=== PATIENT | female | born 1995 | race Caucasian/White ===

== ENCOUNTER 2017-09-29 10:32 | Emergency (ER) | payer OTHER ==
[2017-09-29 10:42] VITALS: BP 109/54
--- NOTE | 2017-09-29 11:54 | XRAY Report ---
EXAM: RIGHT ANKLE RADIOGRAPHY EXAM DATE: 09/29/2017 11:34 AM. CLINICAL HISTORY: Lateral malleolus swelling. Kicked a punching bag. COMPARISON: None. TECHNIQUE: 3 views. FINDINGS: Bones: Normal. No fractures or bone lesions. Joints: Normal. No effusion. No subluxations. The ankle mortise is normally aligned. Soft Tissues: Soft tissue swelling of the lateral and anterior aspect of the right ankle. IMPRESSION: 1. No acute osseous abnormalities. 2. Soft tissue swelling. [facility] Referring Provider Line: [phone] SITE ID: [id number]
--- NOTE | 2017-09-29 12:31 | ED Physician Documentation ---
History of Present Illness - Stated complaint Stated Complaint: RT ANKLE INJURY - Chief complaint Chief Complaint: Ext Problem - Additonal information Additional information: rolled ankle on mat at gym lateral pain and swelling denies preg Review of Systems : denies: Now EGA Musculoskeletal: reports: Pain with weight bearing PD PAST MEDICAL HISTORY - Past Medical History Past Medical History: No - Past Surgical History Past Surgical History: No - Present Medications Home Medications: Ambulatory Orders Medication Instructions Recorded Confirmed No Known Home Medications [No 09/29/17 09/29/17 Known Home Medications] - Allergies Allergies/Adverse Reactions: Allergies Allergy/AdvReac Type Severity Reaction Status Date / Time amoxicillin Allergy Anaphylaxis Verified 09/29/17 10:38 Penicillins Allergy Anaphylaxis Verified 09/29/17 12:28 - Social History Does the pt smoke?: Yes Smoking Status: Current every day smoker Does the pt drink ETOH?: No Does the pt have substance abuse?: No - Immunizations Immunizations are current?: Yes PD ED PE NORMAL - Vitals Vital signs reviewed: Yes - Extremities Extremities: Other (R ankle with swelling to lateral aspect and TTP lat mall and ST inferior to lat mall, no heel acilles, 5th MT or mid foot pain, no priximal pain, MSV intact, no lacity) Results - Vitals Vitals: Vital Signs - 24 hr 09/29/17 10:35 Temperature 37.2 C Heart Rate 72 Respiratory 18 Rate Blood Pressure 109/54 L O2 Saturation 98 Oxygen O2 Source Room air - Rads (name of study) ankle Radiology: See rad report (neg) Departure - Departure Disposition: 01 Home, Self Care Clinical Impression: Ankle sprain Qualifiers: Encounter type: initial encounter Involved ligament of ankle: unspecified ligament Laterality: right Qualified Code(s): S93.401A - Sprain of unspecified ligament of right ankle, initial encounter Condition: Good Instructions: ED Sprain Ankle W X Ray Comments: Wear the HERMINIA wrap, ice, and elevate to decrease the swelling USe the cructhes as needed - if not able to comfortably bear weight in 2 weeks please see your PMD for consideration of repeat xrays Forms: Activity restrictions
== END 2017-09-29 13:10 | disposition home or self-care (01) ==
LOC: ED 10:32
DX: S93.401A Sprain of unspecified ligament of right ankle, initial encounter (principal); X50.1XXA Overexertion from prolonged static or awkward postures, initial encounter; Y92.39 Other specified sports and athletic area as the place of occurrence of the external cause; F17.200 Nicotine dependence, unspecified, uncomplicated
CPT/HCPCS: 99283

== ENCOUNTER 2018-04-12 15:23 | Emergency (ER) | payer OTHER ==
[2018-04-12 15:42] LABS: BILIRUBIN,URINE NEGATIVE (NEGATIVE); GLUCOSE, URINE (UA) NEGATIVE (NEGATIVE); KETONES,URINE (UA) NEGATIVE (NEGATIVE); LEUKOCYTE ESTERASE, URINE NEGATIVE (NEGATIVE); NITRITE,URINE NEGATIVE (NEGATIVE); OCCULT BLOOD,URINE SMALL (NEGATIVE); PROTEIN,URINE NEGATIVE (NEGATIVE); UROBILINOGEN,URINE 0.2 (NORMAL) E.U./dL (NORMAL)
[2018-04-12 15:50] LABS: CLARITY,URINE CLEAR (CLEAR); HCG UR QUAL NEGATIVE
[2018-04-12 15:57] LABS: BACTERIA,URINE None Seen /HPF (None Seen); RBC,URINE 0-5 /HPF (0-5); SQUAMOUS EPITHELIAL CELL,UR MANY Squamous (<= Few); STARCH,URINE PRESENT
[2018-04-12] MEDS ORDERED: AZITHROMYCIN 250 MG TABLET PO STA (17:09)
[2018-04-12] MEDS ORDERED: LIDOCAINE 1% 2 ML VIAL SUBQ ONE (17:09)
[2018-04-12] MEDS ORDERED: cefTRIAXone 250 MG VIAL IM STA (17:09)
--- NOTE | 2018-04-12 17:12 | ED Physician Documentation ---
PD HPI CHEST PAIN - Stated complaint Stated Complaint: ABD PX - Chief complaint Chief Complaint: Abd Pain - History obtained from History obtained from: Patient - History of Present Illness Timing - onset: Other (For the last week she has had increasing right-sided low chest wall pain that is worse with coughing, deep breathing, sneezing. She does have a cough productive of white sputum. Is also worse if she lifts her arms over her head. There is no association with eating. As an ancillary complaint she would like to be tested and treated for STDs due to some high risk behaviors recently. She has no symptoms of STD. No recent travel, she is not on control, no leg pain or pedal edema.) Review of Systems Constitutional: denies: Fever, Chills, Fatigue Cardiac: reports: Chest pain / pressure. denies: Palpitations Respiratory: reports: Cough. denies: Dyspnea GI: denies: Abdominal Pain, Nausea, Vomiting PD PAST MEDICAL HISTORY - Past Surgical History Past Surgical History: No - Present Medications Home Medications: Ambulatory Orders Medication Instructions Recorded Confirmed No Known Home Medications 09/29/17 04/12/18 - Allergies Allergies/Adverse Reactions: Allergies Allergy/AdvReac Type Severity Reaction Status Date / Time amoxicillin Allergy Anaphylaxis Verified 04/12/18 15:26 Penicillins Allergy Anaphylaxis Verified 04/12/18 15:26 - Social History Does the pt smoke?: Yes Smoking Status: Current every day smoker Does the pt drink ETOH?: No Does the pt have substance abuse?: No - Immunizations Immunizations are current?: Yes PD ED PE NORMAL - Vitals Vital signs reviewed: Yes - General General: Alert and oriented X 3, No acute distress - HEENT HEENT: PERRL, EOMI, Pharynx benign - Neck Neck: Supple, no meningeal sign, No bony TTP - Cardiac Cardiac: RRR, No murmur - Respiratory Respiratory: No respiratory distress, Clear bilaterally - Abdomen Abdomen: Non tender - Back Back: No CVA TTP, No spinal TTP - Derm Derm: Normal color, Warm and dry - Extremities Extremities: No edema, No calf tenderness / cord - Neuro Neuro: Alert and oriented X 3, Normal speech Results - Vitals Vitals: Vital Signs - 24 hr 04/12/18 15:24 Temperature 36.8 C Heart Rate 91 Respiratory 16 Rate Blood Pressure 102/87 H O2 Saturation 100 Oxygen O2 Source Room air - EKG (time done) 1728 Rate: Rate (enter#) (65) Rhythm: NSR [place]: Normal Intervals: Normal MS QRS: Normal Ischemia: Normal ST segments Computer interpretation: Agree with computer - Labs Labs: Laboratory Tests 04/12/18 15:30 Urine Color YELLOW Urine Clarity CLEAR Urine pH 6.0 Ur Specific [place] <=1.005 Urine Protein NEGATIVE Urine Glucose (UA) NEGATIVE Urine Ketones NEGATIVE Urine Occult Blood SMALL H Urine Nitrite NEGATIVE Urine Bilirubin NEGATIVE Urine Urobilinogen 0.2 (NORMAL) Ur Leukocyte Esterase NEGATIVE Urine RBC 0-5 Urine WBC 0-3 Ur Squamous Epith Cells MANY Squamous H Urine Bacteria None Seen Urine Starch PRESENT Ur Microscopic Review INDICATED Urine Culture Comments NOT INDICATED Urine HCG, Qual NEGATIVE PD MEDICAL DECISION MAKING - ED course ED course: Given the history it seems more chest and abdomen, kind of a pleuritic chest pa in that is worse when she takes a deep breath, coughs, or moves her arms over her head. There is no abdominal tenderness. - Sepsis Event Vital Signs: Vital Signs - 24 hr 04/12/18 15:24 Temperature 36.8 C Heart Rate 91 Respiratory 16 Rate Blood Pressure 102/87 H O2 Saturation 100 Oxygen O2 Source Room air Departure - Departure Disposition: 01 Home, Self Care Clinical Impression: Strain of chest wall Condition: Good Record reviewed to determine appropriate education?: Yes Instructions: ED Strain Chest Wall Ch Comments: Ibuprofen as needed for pain, follow-up with your doctor, next available appointment. Return for new or worsening symptoms.
[2018-04-12 17:37] LABS: BASOPHILS % (AUTO) 0.4 %; EOSINOPHILS # (AUTO) 0.1 10^3/uL (0.0-0.7); EOSINOPHILS % (AUTO) 2.1 %; HGB - HEMOGLOBIN 13.9 g/dL (12.0-16.0); LYMPHOCYTES # (AUTO) 1.5 10^3/uL (1.5-3.5); LYMPHOCYTES % (AUTO) 24.8 %; MEAN CORPUSCULAR HEMOGLOBIN 30.1 pg (27.0-31.0); MEAN CORPUSCULAR HGB CONC 34.2 g/dL (32.0-36.0); MEAN CORPUSCULAR VOLUME 88.1 fL (81.0-99.0); MEAN PLATELET VOLUME 7.1 fL (7.9-10.8); MONOCYTES # (AUTO) 0.5 10^3/uL (0.0-1.0); MONOCYTES % (AUTO) 8.2 %; NEUTROPHILS # (AUTO) 3.9 10^3/uL (1.5-6.6); NEUTROPHILS % (AUTO) 64.5 %; PLT - PLATELET COUNT 315 10^3/uL (130-450); RED BLOOD COUNT 4.63 10^6/uL (4.20-5.40); RED CELL DISTRIBUTION WIDTH 12.5 % (12.0-15.0); WHITE BLOOD COUNT 6.1 x10^3/uL (4.8-10.8)
--- NOTE | 2018-04-12 17:44 | XRAY Report ---
Reason: chest pain Procedure Date: 04/12/2018 Accession Number: [id number] / [id number] Procedure: XR - Chest 1 View X-Ray CPT Code: 09754 FULL RESULT: EXAM: CHEST RADIOGRAPHY EXAM DATE: 04/12/2018 05:11 PM. CLINICAL HISTORY: Chest pain. COMPARISON: None. TECHNIQUE: 1 view. FINDINGS: Lungs/Pleura: No focal opacities evident. No pleural effusion. No pneumothorax. Mediastinum: Within exam limitations, the cardiomediastinal contour is normal. Other: None. IMPRESSION: Negative chest [facility]
[2018-04-12 17:48] LABS: ALBUMIN 4.5 g/dL (3.2-5.5); ALBUMIN/GLOBULIN RATIO 1.5 (1.0-2.2); BILIRUBIN,TOTAL 0.7 mg/dL (0.2-1.0); CALCIUM 9.2 mg/dL (8.5-10.3); CREATININE 0.6 mg/dL (0.4-1.0); TOTAL PROTEIN 7.5 g/dL (6.7-8.2)
[2018-04-12 18:46] VITALS: BP 128/76
== END 2018-04-12 19:06 | disposition home or self-care (01) ==
LOC: ED 15:23
DX: S29.011A Strain of muscle and tendon of front wall of thorax, initial encounter (principal); X58.XXXA Exposure to other specified factors, initial encounter; F17.200 Nicotine dependence, unspecified, uncomplicated
CPT/HCPCS: 36415; 71045; 80053; 81001; 81025; 83690; 85025; 85379; 87491; 87591; 93005; 96372; 99283; A9270; 81003; 87086